=== PATIENT | female | born 2000 ===

== ENCOUNTER 2019-10-20 10:48 | Outpatient (CLI) | payer BC, MEDICAID | END 2019-10-20 13:37 | disposition home or self-care (01) | LOC: TRG 10:48 | PROVIDERS: ATTEND Obstetrics & Gynecology | DX: O26.893 Other specified pregnancy related conditions, third trimester (principal); Z67.11 Type A blood, Rh negative; Z3A.28 28 weeks gestation of pregnancy | CPT/HCPCS: 86850; 86900; 86901; 96372; J2790 ==